=== PATIENT | female | born 1990 | race Caucasian/White ===

== ENCOUNTER 2021-12-01 13:08 | Emergency (ER) | payer SELFPAY ==
[~2021-12-01] VITALS: Ht 175.3 cm; Wt 77.3 kg
[2021-12-01 13:28] VITALS: BP 126/79; TEMP 99.2
[2021-12-01 13:59] LABS: COLLECTION METHOD CLEAN CATCH
[2021-12-01 14:10] LABS: MUCOUS Present (NOT PRESENT); PH 6 (5-8); SQUAMOUS EPITHELIAL 0-2 /hpf (0-10); URINE APPEARANCE Clear (CLEAR/HAZY); URINE BACTERIA Rare /hpf (NONE SEEN); URINE BILIRUBIN Negative (NEGATIVE); URINE BLOOD Negative (NEGATIVE); URINE COLOR Amber (YELLOW); URINE GLUCOSE Negative (NEGATIVE); URINE KETONE Negative (NEGATIVE); URINE LEUKOCYTE ESTERASE Negative (NEGATIVE); URINE NITRATE Positive (NEGATIVE); URINE PROTEIN(semi-quant) Negative (NEGATIVE); URINE RBC 0-2 /hpf (0-2); URINE UROBILINOGEN >=4.0 (NEGATIVE)
[2021-12-01 15:14] VITALS: PULSE 82
== END 2021-12-01 15:15 | disposition home or self-care (01) ==
LOC: COL.ER 13:08
PROVIDERS: Emergency Medicine
DX: N93.9 Abnormal uterine and vaginal bleeding, unspecified (principal); Z32.02 Encounter for pregnancy test, result negative; Z28.310 Unvaccinated for COVID-19